=== PATIENT | male | born 1960 | race Hispanic/Latino ===

== ENCOUNTER 2017-05-24 17:35 | Emergency (ER) | payer OTHER, MEDICARE ==
[~2017-05-24 17:35] MED LIST: (None)10 MG OR; AMOXICILLIN/CL875 MG OR; AMOXICILLIN500 MG OR; ASPIRIN LOW DOS81 M1 PO; ASPIRIN LOW DOS81 MG PO; ASPIRIN325 MG PO; ATIVAN1 M1 PO; ATIVAN1 MG PO; BAYER ASA325 MG PO; CIPROFLOXACN500 MG PO; CLONIDINE0.2 MG OR; CLONIDINE0.2 MG PO; COLACE100 MG PO; COREG25 MG OR; COREG25 MG PO; COUMADIN5 MG PO; CYANOCOBALAM1000 MCG IJ; CYANOCOBALAM1000 MCG IM; DIGITEK0.25 MG PO; DIGOXIN0.125 MG PO; DILTIAZEM240 MG PO; FLEXERIL PO; FLONASE NASAL50 MCG; FUROSEMIDE20 MG PO; KLOR-CON M2020 MEQ PO; LASIX40 MG PO; LISINOPRIL20 MG PO; LISINOPRIL5 MG OR; LUNESTA3 MG OR; LUNESTA3 MG PO; METFORMIN500 M1 OR; METFORMIN500 MG OR; NEBULIZE1; NITROGLYCER0.4 MG SL; NORVASC5 MG OR
== END 2017-05-24 17:47 | disposition expired | DRG 298 ==
LOC: ED 17:35
PROC: 0BH17EZ Insertion of Endotracheal Airway into Trachea, Via Natural or Artificial Opening (ICD-10-PCS; principal; 2017-05-24)
PROC: 5A12012 Performance of Cardiac Output, Single, Manual (ICD-10-PCS; 2017-05-24)
DX: I46.9 Cardiac arrest, cause unspecified (principal); I11.0 Hypertensive heart disease with heart failure; I50.9 Heart failure, unspecified; E11.9 Type 2 diabetes mellitus without complications; J44.9 Chronic obstructive pulmonary disease, unspecified; G47.30 Sleep apnea, unspecified; Z95.0 Presence of cardiac pacemaker